=== PATIENT | male | born 2000 | race Caucasian/White ===

== ENCOUNTER 2024-11-23 17:11 | Emergency (ER) | payer OTHER, SELFPAY ==
[2024-11-23 17:11] VITALS: BMI 22.9
[2024-11-23 17:15] VITALS: BP 116/79
[2024-11-23 17:45] LABS: % Basophils 0.1 % (0-2); % Eosinophils 0.1 % (0-6); % Immature Granulocytes 0.5 % (0-0.5); % Lymphocytes 3.8 % (20.5-51.1); % Monocytes 8.1 % (1.7-9.3); % Neutrophils 87.4 % (42.2-75.2); Absolute Lymphocytes 0.3 10^3/uL (1.2-3.4); Absolute Monocytes 0.7 10^3/uL (0.1-0.6); Absolute Neutrophils 7.4 10^3/uL (1.4-6.5); Hematocrit 49.6 % (39.0-52.0); Mean Corp Hgb Conc. 36.3 g/dL (33.0-37.0); Mean Corpuscular Volume 88.1 fL (80.0-94.0); Mean Platelet Volume 10.6 fL (7.4-10.4); Nucleated Red Blood Cells % 0 % (-); Platelet Count 155 10^3/uL (130-400); Red Blood Cell Count 5.63 10^6/uL (4.70-6.10); Red Cell Dist. Width 11.7 % (11.5-14.5); White Blood Cell Count 8.5 10^3/uL (4.8-10.8)
[2024-11-23 17:56] LABS: ALT (SGPT) 25 U/L (0-50); AST (SGOT) 25 U/L (17-59); Albumin 5.3 g/dl (3.5-5.0); Alkaline Phosphatase 40 U/L (38-126); Blood Urea Nitrogen 25 mg/dl (9-20); Calcium 10.1 mg/dl (8.4-10.2); Carbon Dioxide 26 mmol/L (22-30); Chloride 96 mmol/L (98-107); Glucose 136 mg/dl (70-99); Lipase 37 U/L (23-300); Sodium 134 mmol/L (135-145); Total Bilirubin 9.4 mg/dl (0.2-1.3); Total Protein 8.1 g/dl (6.3-8.2); eGFR > 60.00
--- NOTE | 2024-11-23 20:50 | ED.GENMED ---
History of Present Illness
<Michelle Hammonds PA-C - Last Filed: 11/24/24 00:09>
General
Chief Complaint: Abdominal Symptoms
Source: patient
Exam Limitations: none
Time Seen by Provider: 11/23/24 20:27
Nursing documentation reviewed up to this point in time: agreed with
History of Present Illness
History of Present Illness:
Patient is a 24-year-old male with history Gilbert syndrome presenting to the emergency department for nausea, vomiting, and diarrhea. Patient reports onset of symptoms yesterday morning which have persisted into today. He has been unable to
tolerate any food or liquid since yesterday. Patient was seen in urgent care facility this morning where they gave him a p.o. Zofran and recommended that he come to the emergency department if symptoms persisted throughout today. Patient concern
for possible dehydration. Patient denies any known fever or focal abdominal pain. Patient denies any hematemesis or hematochezia. No known sick contacts.
Past History
<Michelle Hammonds PA-C - Last Filed: 11/24/24 00:09>
Past History
ED Past Medical History: None
ED Past Surgical History: None
Social History
Tobacco: Non-smoker
Alcohol: Occasional
Review of Systems
<Michelle Hammonds PA-C - Last Filed: 11/24/24 00:09>
Review of Systems
Allergies reviewed?: Yes
All Other Systems: ROS reviewed and negative except as documented in HPI and ROS
Phy Exam
<Michelle Hammonds PA-C - Last Filed: 11/24/24 00:09>
Physical Exam
Physical Exam:
Vitals: Mildly tachycardic. Otherwise vital signs stable. Afebrile
General: Patient is well appearing, no acute distress
Skin: Warm and dry, no rashes or lesions
Head: Normocephalic, atraumatic
Eyes: Sclera nonicteric. EOMs intact. No nystagmus.
Throat: Mildly dry mucous membranes. Protecting airway
Neck: Normal ROM, no cervical spine tenderness, no meningismus
Cardiac: Regular rate and rhythm, no murmurs.
Pulm: Normal respiratory effort, no wheezes, rales, rhonchi heard on exam.
Abdomen: Abdomen soft. No abdominal tenderness. No rebound tenderness or guarding. No CVA tenderness
Extremities: No evidence of cyanosis or edema. Perfusing well.
Neuro: AAOx3. CN II-XII intact. No focal neurologic deficits.
Psychiatric: Normal affect.
Course
<Michelle Hammonds PA-C - Last Filed: 11/24/24 00:09>
Orders/Labs/Results
Orders:
Orders
11/23/24 17:30
Complete Blood Count/With Diff Urgent
Comprehensive Metabolic Panel Urgent
Lipase Urgent
11/23/24 20:37
0.9% Sodium Chloride 1000 ml [Nss] 1,000 ml IV BOLUS
Ketorolac [Toradol] 15 mg IV NOW STA
Ondansetron Injectable [Zofran] 4 mg IV NOW STA
Abnormal Lab Results
11/23/24
17:30
MCH 32.0 H pg
(27.0-31.0)
MPV 10.6 H fL
(7.4-10.4)
Absolute Neuts (auto) 7.4 H 10^3/uL
(1.4-6.5)
Absolute Lymphs (auto) 0.3 L 10^3/uL
(1.2-3.4)
Absolute Monos (auto) 0.7 H 10^3/uL
(0.1-0.6)
Neutrophils % 87.4 H %
(42.2-75.2)
Lymphocytes % 3.8 L %
(20.5-51.1)
Sodium 134 L mmol/L
(135-145)
Chloride 96 L mmol/L
(98-107)
BUN 25 H mg/dl
(9-20)
Glucose 136 H mg/dl
(70-99)
Total Bilirubin 9.4 H mg/dl
(0.2-1.3)
Albumin 5.3 H g/dl
(3.5-5.0)
11/23/24 17:30
11/23/24 17:30
Vital Signs
Initial and Last Documented VS:
Initial Vital Signs
Temp Pulse Resp BP Pulse Ox
98.2 F 103 18 116/79 97
11/23/24 17:15 11/23/24 17:15 11/23/24 17:15 11/23/24 17:15 11/23/24 17:15
Last Documented Vital Signs
Temp Pulse Resp BP Pulse Ox
98.4 F 77 18 117/66 98
11/23/24 21:11 11/23/24 21:11 11/23/24 21:11 11/23/24 21:37 11/23/24 21:37
<iSs Wagoner, DO - Last Filed: 11/23/24 21:45>
Orders/Labs/Results
Orders:
Orders
11/23/24 17:30
Complete Blood Count/With Diff Urgent
Comprehensive Metabolic Panel Urgent
Lipase Urgent
11/23/24 20:37
0.9% Sodium Chloride 1000 ml [Nss] 1,000 ml IV BOLUS
Ketorolac [Toradol] 15 mg IV NOW STA
Ondansetron Injectable [Zofran] 4 mg IV NOW STA
Abnormal Lab Results
11/23/24
17:30
MCH 32.0 H pg
(27.0-31.0)
MPV 10.6 H fL
(7.4-10.4)
Absolute Neuts (auto) 7.4 H 10^3/uL
(1.4-6.5)
Absolute Lymphs (auto) 0.3 L 10^3/uL
(1.2-3.4)
Absolute Monos (auto) 0.7 H 10^3/uL
(0.1-0.6)
Neutrophils % 87.4 H %
(42.2-75.2)
Lymphocytes % 3.8 L %
(20.5-51.1)
Sodium 134 L mmol/L
(135-145)
Chloride 96 L mmol/L
(98-107)
BUN 25 H mg/dl
(9-20)
Glucose 136 H mg/dl
(70-99)
Total Bilirubin 9.4 H mg/dl
(0.2-1.3)
Albumin 5.3 H g/dl
(3.5-5.0)
11/23/24 17:30
11/23/24 17:30
Vital Signs
Initial and Last Documented VS:
Initial Vital Signs
Temp Pulse Resp BP Pulse Ox
98.2 F 103 18 116/79 97
11/23/24 17:15 11/23/24 17:15 11/23/24 17:15 11/23/24 17:15 11/23/24 17:15
Last Documented Vital Signs
Temp Pulse Resp BP Pulse Ox
98.4 F 77 18 117/66 98
11/23/24 21:11 11/23/24 21:11 11/23/24 21:11 11/23/24 21:37 11/23/24 21:37
<Michelle Hammonds PA-C - Last Filed: 11/24/24 00:09>
MDM/Problems Addressed
Differential Diagnosis Includes:
Following to: Viral gastroenteritis, acute dehydration, bacterial colitis, pancreatitis, cholecystitis, etc.
MDM/Problems Addressed:
24-year-old male presenting with nausea, vomiting, and diarrhea for the past 36 hours. Unable to tolerate p.o. intake. No known fever or notable abdominal pain. No known sick contacts. Patient very mildly tachycardic on arrival although improved
by my assessment. Otherwise he is stable vital signs and is afebrile. On exam�patient is well-appearing, no apparent distress. Abdomen is soft and nontender throughout. Patient perfusing well. No clinical signs of dehydration. Ultimately
suspect viral gastroenteritis. Low suspicion for acute intra-abdominal pathology given benign abdominal exam. Basic labs were initiated in triage and pending. Will give IV fluids, Zofran and reassess.
Update: Labs reviewed. No clinically significant abnormalities. He does have an elevated bilirubin of 9.4 which I suspect to be secondary to underlying Gilbert's syndrome. He has no right upper quadrant tenderness.
Update 10 PM: Into reassess patient at bedside. He is feeling much better and tolerating p.o. intake. Vital signs of normalized. Abdomen remains soft and nontender throughout. High suspicion for viral gastroenteritis. Patient stable for
discharge home. Close return precautions discussed.
Chronic conditions affecting care:
Guilbert syndrome
Acute Exacerbation and/or Progression of Chronic Illness:
Acute hyperbilirubinemia
<Michelle Hammonds PA-C - Last Filed: 11/24/24 00:09>
*Pulse Oximetry
Patient hypoxic: no
*EKG
Interpreted by ED Provider?: NA
*Endoscopy Nurse Interpretation
Rate: Endoscopy Nurse- N/A
*Critical Care Note
Total Time (30-74mins, 75-104mins- exclusive of procedures): Not Applicable
ED Attending Note
<Michelle Hammonds PA-C - Last Filed: 11/24/24 00:09>
-
Portions of this chart may have been created with voice recognition software.� Occasional wrong word or��sound alike� substitutions may have occurred due to the inherent limitations of voice recognition software.
<Sis Wagoner DO - Last Filed: 11/23/24 21:45>
ED Attending Note
Patient seen and examined by attending physician: Yes
I performed the substantive portion of visit, reviewed & personally made and approve the management plan that is documented in note by myself or CAROL.: Yes
I performed a history and physical exam of patient and discussed management with resident, I reviewed resident's note and agree with documented findings and plan of care.: Yes
ED Attending Note:
24-year-old male with history of Guilbert syndrome presenting for nausea, vomiting, diarrhea. Patient reports symptoms started yesterday with difficulty tolerating p.o. Denies any associated abdominal pain. Denies fever. Denies known sick
contacts. Went to urgent care prior to arrival. Vital signs are normal.
On exam patient is well-appearing, no acute distress or discomfort. He is afebrile, nontoxic. No clinical signs of dehydration. Abdomen is soft and nontender without concern for serious intra-abdominal process or infection. At this time suspect
viral gastroenteritis, namely norovirus. Plan for laboratory analysis and therapeutic treatment with IV fluids and Zofran, with p.o. challenge and disposition home for supportive therapy
21:15 - Labs unremarkable with the exception of T. bili, suspected due to underlying Guilbert syndrome. No focal tenderness to the abdomen or right upper quadrant.
21:40 - Tolerated PO. Stable for discharge home.
Discharge Plan
Departure
Patient Disposition: Home (Routine Discharge)
Date of Disposition: 11/23/24
Time of Disposition: 22:00
Patient with high blood pressure during this ER visit?: No
Condition: Good
Covid-19: Not Applicable
Discharge Problem:
Nausea, vomiting, and diarrhea
Instructions: Dehydration, Adult (DC), Nausea and Vomiting, Adult (DC)
Prescriptions:
No Action
prednisone 20 MG tablet
40 mg PO DAILY Qty: 6 0RF
Referrals:
NONE,* [Family Provider] -
Activity Restrictions/Additional Instructions:
RETURN TO THE EMERGENCY DEPARTMENT WITH ANY FEVERS, SEVERE ABDOMINAL PAIN, INTRACTABLE NAUSEA/VOMITING, SIGNS OF SEVERE DEHYDRATION INCLUDING LACK OF URINE PRODUCTION, WORSENING IN CURRENT SYMPTOMS, OR ANY OTHER CONCERNS
-As discussed it is very important to stay well-hydrated. I recommend a bland diet over the next 2 days and advance slowly as tolerated
-You can take Zofran up to every 8 hours as needed for persistent nausea/vomiting
-Follow-up with primary care for further evaluation/management
Monitor your symptoms closely return to the emergency department with any acute worsening/new symptoms or any other concerns
Interventions
Interventions:
*Risk Screen - Suicide Last Done: 11/23/24 20:59
*General Assessment Last Done: 11/23/24 20:59
*Neglect/Abuse Screening Last Done: 11/23/24 20:59
ED- Fall Risk Assessment Last Done: 11/23/24 21:00
*ED COVID-19 Vaccine History Last Done: 11/23/24 20:59
*Nursing Disposition Last Done: 11/23/24 22:22
[facility] Assessment Last Done: 11/23/24 21:10
Discharge Date and Time
Discharge Date/Time: 11/23/24 22:22
Print Language: IRISH
[2024-11-23 20:55] VITALS: BP 136/85
[2024-11-23 21:00] VITALS: BP 122/76
[2024-11-23 21:08] VITALS: BP 98/55
[2024-11-23] MEDS: TORADOL 15 MG IV (21:10)
[2024-11-23] MEDS: NSS 1000 IV (21:10)
[2024-11-23] MEDS: ZOFRAN 4 MG IV (21:10)
[2024-11-23 21:11] VITALS: BP 98/55
[2024-11-23 21:37] VITALS: BP 117/66
== END 2024-11-23 22:22 | disposition home or self-care (01) ==
LOC: EMR 17:11
PROVIDERS: Emergency Medicine; EMERGENCY PHYSICIAN Student in an Organized Health Care Education/Training Program
DX: R11.2 Nausea with vomiting, unspecified (principal); R19.7 Diarrhea, unspecified; R00.0 Tachycardia, unspecified; E80.4 Gilbert syndrome; Z88.0 Allergy status to penicillin; Z91.018 Allergy to other foods
CPT/HCPCS: 99284; 96374; 96375; 96361; 80053; 83690; 85025